=== PATIENT | female | born 1970 | race Two or more races ===

== ENCOUNTER 2023-04-04 10:01 | Day surgery (SDC) | payer OTHER ==
[~2023-04-04 10:01] MED LIST: AZELASTINE137 MCG/0. NASAL; DICLOFENAC-MIS1 EAC1 PO; PREVACID30 M1 PO; ZANAFLEX4 M1 PO; ZETIA10 MG PO; ZOCOR40 MG PO
[2023-04-04] MEDS ORDERED: CEFTRIAXONE SODIUM 2,000 MG VIAL ONE (12:18)
[2023-04-04] MEDS ORDERED: METRONIDAZOLE/SODIUM CHLORIDE 500 MG/100 ML PIGGYBACK IV ONE ×2 (12:20→15:00)
[2023-04-04] MEDS ORDERED: DIBUCAINE 30 GM TUBE ONE (13:40)
[2023-04-04] MEDS ORDERED: BUPIVACAINE HCL/PF 0.5% 30ML ML ONE (13:40)
[2023-04-04] MEDS ORDERED: LIDOCAINE HCL 1%/Epi 20ML VIAL IJ ONE (13:40)
[2023-04-04] MEDS ORDERED: POVIDONE-IODINE 118 ML BOTT TOP ONE ×2 (13:41→15:00)
[2023-04-04] MEDS ORDERED: HEMOSTATIC MATRIX 1 KIT KIT TOP ONE ×2 (13:41→15:00)
[2023-04-04] MEDS ORDERED: DIBUCAINE 15 GM OINT..GM. TUBE RECTAL ONE (15:00)
[2023-04-04] MEDS ORDERED: CEFTRIAXONE SODIUM 2,000 MG VIAL IV ONE (15:00)
[2023-04-06] MEDS ORDERED: BUPIVACAINE HCL/PF 0.25% 30ML VIAL InF ONE (15:15)
[2023-04-06] MEDS ORDERED: LIDOCAINE HCL/EPINEPHRINE 10 ML VIAL IJ ONE (15:15)
== END 2023-04-04 22:45 | disposition home or self-care (01) ==
LOC: CIR.AMB 10:01
PROVIDERS: ATTEND Colon & Rectal Surgery
DX: K64.1 Second degree hemorrhoids (principal); K64.8 Other hemorrhoids; K64.4 Residual hemorrhoidal skin tags

== ENCOUNTER 2023-04-23 11:13 | Emergency (ER) | payer OTHER ==
[~2023-04-23] VITALS: Ht 162.6 cm; Wt 68.0 kg
[2023-04-23] MEDS ORDERED: CELEBREX100 MG PO (13:15)
[2023-04-23] MEDS ORDERED: FAMOTIDINE/PF 20 MG in 0.9 % SODIUM CHLORIDE 8 ML IV PUSH STA (13:43)
[2023-04-23] MEDS ORDERED: 0.9 % SODIUM CHLORIDE 1,000 ML IV SCH (13:45)
[2023-04-23 14:18] LABS: HEMATOCRIT 39.7 % (36.0-45.00); HEMOGLOBIN 13.7 g/dL (12.0-15.00); MEAN CELL VOLUME 85.1 fL (80.00-100.00); MEAN CORPUSCULAR HEMOGLOBIN 29.5 pg (27.00-32.0); MEAN CORPUSCULAR HGB CONC 34.6 g/dl (32.0-36.0); PLATELET COUNT 400 K/uL (150-450); RED BLOOD COUNT 4.66 M/uL (4.00-6.00); RED CELL DISTRIBUTION WIDTH 13.2 % (11.5-14.5)
[2023-04-23 14:59] LABS: ALBUMIN 3.9 gm/dL (3.4-5.0); BILIRUBIN TOTAL 0.69 mg/dL (0.3-1.2); CALCIUM 9.7 mg/dL (8.5-10.1); CREATININE SERUM 0.66 mg/dL (0.55-1.02); GFR 94.8; GLOBULINA 4.4 G/DL (2.4-3.5); POTASSIUM 3.65 mEq/L (3.5-5.1); TOTAL PROTEIN 8.3 gm/dL (6.4-8.2)
== END 2023-04-23 17:30 | disposition home or self-care (01) ==
LOC: ER 11:13
PROVIDERS: General Practice
DX: A09 Infectious gastroenteritis and colitis, unspecified (principal)